=== PATIENT | male | born 1965 | race Caucasian/White ===

== ENCOUNTER 2017-04-14 10:34 | Inpatient (IN) | payer OTHER ==
[2017-04-11 12:36] LABS: Urine WBC None Seen /hpf (0 - 3)
[2017-04-11 12:51] LABS: Basophils # (auto) 0.1 uL; Eosinophils # (auto) 0.2 uL; Eosinophils % (auto) 2.1 % (0.0-7.0); Hemoglobin 17.7 g/dL (13.5-17.5); Monocytes # (auto) 0.8 uL; Neutrophils # (auto) 5.4 uL
[2017-04-11 12:53] LABS: Basophils % (auto) 1.2 % (0.0-2.0); Hematocrit 51.7 % (41.0-53.0); Lymphocytes # (auto) 1.8 uL; Lymphocytes % (auto) 21.9 % (10.0-50.0); Mean Corpuscular Hemoglobin 32.9 pg (28.0-32.0); Mean Corpuscular Hgb Conc. 34.2 g/dL (32.0-36.0); Mean Corpuscular Volume 96.2 fL (80.0-100.0); Monocytes % (auto) 9.3 % (0.0-12.0); Neutrophils % (auto) 65.5 % (37.0-80.0); Nucleated Red Blood Cells % 0.3 %; Platelet Count (auto) 180 10^3/uL (140-450); Red Blood Cells 5.38 10^6/uL (4.5-5.90); Red Cell Distribution Width 13.6 % (11.8-14.3); White Blood Cell 8.2 10^3/uL (4.4-10.8)
[2017-04-11 13:07] LABS: BUN/Creatinine Ratio 13.9; Calcium 9.5 mg/dL (8.5-10.1); INR 1.02 (0.9-1.15); Partial Thromboplastin Time 28.5 sec (22.64-33.71); Prothrombin Time 11.1 sec (9.37-12.3)
[2017-04-11 14:26] LABS: Urine Bacteria NONE SEEN /hpf (None Seen); Urine Blood Negative /uL (Negative); Urine Specific Gravity 1.012 (1.001-1.035)
[~2017-04-14] VITALS: Ht 180.3 cm; Wt 105.6 kg
[~2017-04-14 10:34] MED LIST: ALLO300T2 PO; IBUP800T24 PO; LISI-275 PO
[2017-04-14] MEDS ORDERED: MIDAZOLAM HCL 1MG/1ML-2 ML VIAL ONE (11:00)
[2017-04-14] MEDS ORDERED: fentaNYL CITRATE 100 MCG/2 ML VL ONE ×2 (11:00→11:54)
[2017-04-14] MEDS ORDERED: PROPOFOL 10 MG/ML 20 ML IV ONE (11:03)
[2017-04-14] MEDS ORDERED: ROCURONIUM 10MG/ML 10ML VIAL IV ONE (11:06)
[2017-04-14] MEDS ORDERED: LIDOCAINE 1% HCL (LOCAL ANESTH.) INJ 20ML MDV ONE (11:07)
[2017-04-14] MEDS ORDERED: BUPIVACAINE W/ EPINEPH 0.25% INJ 50ML MDV ONE (11:07)
[2017-04-14] MEDS ORDERED: LEVOFLOXACIN 500MG 100 ML IV ONE (11:18)
[2017-04-14] MEDS ORDERED: GLYCOPYRROLATE 0.2 MG/ML 1ML VIAL IV ONE (11:26)
[2017-04-14] MEDS ORDERED: NEOSTIGMINE 1 MG/ML INJ (10mg/10ML VIAL) IV ONE (11:26)
[2017-04-14] MEDS ORDERED: HYDROmorphone HCL 2 MG/ML VL ONE (11:58)
[2017-04-14] MEDS ORDERED: BUPIVACAINE 0.25% INJ 50ML VIAL IJ ONE (12:36)
[2017-04-14] MEDS ORDERED: LIDOCAINE 1% HCL (LOCAL ANESTH.) INJ 20ML MDV IJ ONE (12:36)
[2017-04-14] MEDS ORDERED: ePHEDrine SULFATE 50 MG/ML AMP IV PRN (13:30)
[2017-04-14] MEDS ORDERED: hydrALAZINE HCL 20 MG/ML VL IV PRN (13:30)
[2017-04-14] MEDS ORDERED: ONDANSETRON HCL 4 MG/2 ML VIAL IV ONE (13:30)
[2017-04-14] MEDS: HYDROmorphone HCL 2 MG/ML VL IV PRN ×3 (13:48→16:33)
[2017-04-14] MEDS ORDERED: MORPHINE SULF INJ 2 MG/ML SYRINGE 1ML IV PRN (14:15)
[2017-04-14] MEDS ORDERED: NITROGLYCERIN 0.4 MG SL TAB SL PRN (14:15)
[2017-04-14 14:40] VITALS: BP 135/75
[2017-04-14] MEDS ORDERED: HYDROmorphone HCL 2 MG/ML VL IV PRN (15:15)
[2017-04-14] MEDS ORDERED: LISINOPRIL 5 MG TAB PO ONE (15:15)
[2017-04-14] MEDS ORDERED: diphenhdrAMINE HCL 50 MG/1 ML VL IV PRN (15:15)
[2017-04-14] MEDS ORDERED: ONDANSETRON HCL 4 MG/2 ML VIAL IV PRN (15:15)
[2017-04-14] MEDS ORDERED: NITROFURANTOIN (MONO) 100 mg CAP PO ONE (15:15)
[2017-04-14] MEDS: ACETAMINOPHEN/CODEINE#3 (300/30mg) TAB PO PRN ×2 (16:15→21:55)
[2017-04-14] MEDS: D5W/SOD CHL 0.45% 1,000 ML IV SCH (16:16)
[2017-04-14 17:09] LABS: BUN/Creatinine Ratio 9.8; Calcium 8.2 mg/dL (8.5-10.1); Potassium 4.2 mmol/L (3.5-5.1)
[2017-04-14] MEDS: ALLOPURINOL 300 MG TAB PO SCH (21:54)
[2017-04-14 23:12] VITALS: BP 125/74
[2017-04-15] MEDS: ACETAMINOPHEN/CODEINE#3 (300/30mg) TAB PO PRN ×3 (02:45→12:24)
[2017-04-15] MEDS: D5W/SOD CHL 0.45% 1,000 ML IV SCH ×3 (02:54→10:25)
[2017-04-15 05:45] VITALS: BP 130/76
[2017-04-15 08:14] VITALS: BP 122/78
[2017-04-15] MEDS ORDERED: LISINOPRIL 5 MG TAB PO SCH (10:00)
[2017-04-15] MEDS: ALLOPURINOL 300 MG TAB PO SCH (10:19)
[2017-04-15] MEDS ORDERED: MORPHINE SULFATE 4 MG/ML SYR/VIAL IV PRN (11:00)
[2017-04-15 13:00] VITALS: BP 123/89
[2017-04-15 15:14] VITALS: BP 123/89
[2017-04-15 16:57] VITALS: BP 126/76
== END 2017-04-15 16:20 | disposition home or self-care (01) | DRG 658 ==
LOC: SUR 10:34 → EAST 10:35
PROVIDERS: ADMIT Urology; ATTEND Urology
PROC: 07TD4ZZ Resection of Aortic Lymphatic, Percutaneous Endoscopic Approach (ICD-10-PCS; 2017-04-14)
PROC: 0TB14ZZ Excision of Left Kidney, Percutaneous Endoscopic Approach (ICD-10-PCS; principal; 2017-04-14 11:26)
DX: C64.2 Malignant neoplasm of left kidney, except renal pelvis (principal); I10 Essential (primary) hypertension; Z96.652 Presence of left artificial knee joint; Z88.0 Allergy status to penicillin
CPT/HCPCS: 36415; 80048; 81001; 85025; 85610; 85730; 86850; 86900; 86901; 87086; 88341; A4565; J1956; J2001; J2250; J2405; J2704; J3490